=== PATIENT | female | born 1995 | race Caucasian/White ===

== ENCOUNTER 2021-05-20 23:09 | Emergency (ER) | payer MEDICAID ==
[~2021-05-20] VITALS: Ht 162.6 cm; Wt 49.4 kg
[2021-05-21 00:08] VITALS: BP 128/67
[2021-05-21 01:58] LABS: APPEARANCE,URINE SL CLOUDY (CLEAR); BILIRUBIN,URINE NEGATIVE (NEGATIVE); BLOOD, URINE NEGATIVE (NEGATIVE); COLOR,URINE YELLOW (YELLOW); LEUKOCYTE ESTERASE ,URINE 1+ (NEGATIVE); NITRITE, URINE NEGATIVE (NEGATIVE); UGLUCOSE NEGATIVE (NEGATIVE)
[2021-05-21 02:11] LABS: RBC,URINE 0-5 /HPF (0-5)
--- NOTE | 2021-05-21 02:29 | NUR ---
ACCOMPANIED DR. TRAYLOR FOR PELVIC EXAM. PT'S AT BEDSIDE. SWABS DONE AND SAMPLE SENT TO LAB. PT TOLERATED PROCEDURE WELL.
[2021-05-21] MEDS ORDERED: cefTRIAXone 500 MG in LIDOCAINE MPF 1% 1 ML IM ONE (02:30)
[2021-05-21] MEDS ORDERED: AZITHROMYCIN 250 MG TAB PO ONE (02:30)
[2021-05-21] MEDS ORDERED: cefTRIAXone 500 MG VIAL ONE (02:38)
[2021-05-21] MEDS ORDERED: LIDOCAINE MPF 1% 5 ML ONE (02:39)
[2021-05-21] MEDS ORDERED: GYNLOTC VG ×2 (02:47→02:48)
[2021-05-21] MEDS ORDERED: CEPH-588 PO ×2 (02:48)
[2021-05-21] MEDS ORDERED: PNV91TAB8 PO (02:50)
[2021-05-21 03:27] VITALS: BP 123/62
--- NOTE | 2021-05-21 03:29 | NUR ---
Patient discharged with v/s stable. Written and verbal after care instructions given and explained. Patient alert, oriented and verbalized understanding of instructions. Ambulatory with steady gait. All questions addressed prior to discharge. ID band removed. Patient advised to follow up with PMD. Rx of CEPHALEXIN, CLOTRIMAZOLE, TABLES given. Patient educated on indication of medication including possible reaction and side effects. Opportunity to ask questions provided and answered. PT states she would come back to ER for her STD test results. Dr. Arellano have educated pt risks of not taking Azithromycin.
== END 2021-05-21 03:27 | disposition home or self-care (01) ==
LOC: MED 23:09
DX: O23.592 Infection of other part of genital tract in pregnancy, second trimester (principal); Z11.3 Encounter for screening for infections with a predominantly sexual mode of transmission; Z3A.27 27 weeks gestation of pregnancy
CPT/HCPCS: 36415; 81001; 81025; 86702; 86703; 87086; 87210; 87491; 96372; 99284; J0696; J2001

== ENCOUNTER 2023-03-10 00:30 | Emergency (ER) | payer MEDICAID ==
[~2023-03-10] VITALS: Ht 165.1 cm; Wt 44.9 kg
[~2023-03-10 00:30] MED LIST: CEPH-588 PO; GYNLOTC VG; PNV91TAB8 PO
[2023-03-10 01:03] VITALS: BP 101/69; PULSE 68; RESP 16; TEMP 97.9; O2SAT 100
[2023-03-10 02:03] VITALS: TEMP 97.9
[2023-03-10 02:09] LABS: APPEARANCE,URINE CLEAR (CLEAR); BILIRUBIN,URINE NEGATIVE (NEGATIVE); BLOOD, URINE 2+ (NEGATIVE); COLOR,URINE YELLOW (YELLOW); LEUKOCYTE ESTERASE ,URINE NEGATIVE (NEGATIVE); NITRITE, URINE NEGATIVE (NEGATIVE); PROTEIN,URINE NEGATIVE (NEGATIVE); UGLUCOSE NEGATIVE (NEGATIVE); UROBILINOGEN,URINE 0.2 EU/dL (0.2 - 1)
[2023-03-10 02:18] LABS: BACTERIA,URINE 1+ /HPF (None Seen); MUCUS,URINE 1+ /LPF (None Seen); RBC,URINE 0-5 /HPF (0-5); SQUAMOUS EPITHELIAL CELL,UR 50-80 /LPF (0-3 (FEW)); TRICHOMONAS,URINE None Seen /HPF (None Seen); WBC,URINE 0-5 /HPF (0-5); YEAST,URINE None Seen /HPF (None Seen)
[2023-03-10 02:18] LABS: BASOPHILS % (AUTO) 0.9 % (0.0-2.0); EOSINOPHILS # (AUTO) 0.1 K/uL (0-0.4); HEMATOCRIT 35.7 % (36-48); HEMOGLOBIN 12.1 g/dL (12.0-16.0); LYMPHOCYTES # (AUTO) 2.2 K/uL (2.5-16.5); LYMPHOCYTES % (AUTO) 41.5 % (20.5-51.1); MEAN CORPUSCULAR HEMOGLOBIN 31 pg (27-31); MEAN CORPUSCULAR HGB CONC 34 g/dL (33-37); MEAN CORPUSCULAR VOLUME 90.3 fL (80-94); MONOCYTES # (AUTO) 0.3 K/uL (0.8-1.0); MONOCYTES % (AUTO) 6.4 % (1.7-9.3); NEUTROPHILS # (AUTO) 2.5 K/uL (1.8-7.7); NEUTROPHILS % (AUTO) 49.2 % (42.2-75.2); PLATELET COUNT (AUTO) 194 K/uL (140-450); RED BLOOD CELL COUNT(AUTO) 3.95 MIL/uL (4.20-5.40); RED CELL DISTRIBUTION WIDTH 13.2 % (11.6-13.7); WHITE BLOOD COUNT (AUTO) 5.2 K/uL (4.8-10.8)
[2023-03-10 02:21] VITALS: O2SAT 99
[2023-03-10 02:33] LABS: ANION GAP 9.2 (8-16); CALCIUM 8.8 mg/dL (8.5-10.1); CARBON DIOXIDE 30.4 mmol/L (21-32); CREATININE 0.7 mg/dL (0.6-1.3); POTASSIUM 3.6 mmol/L (3.5-5.1)
[2023-03-10 02:39] LABS: ALBUMIN 3.2 g/dL (3.4-5.0); BILIRUBIN,DIRECT 0.1 mg/dL (0.0-0.3); TOTAL BILIRUBIN 0.9 mg/dL (0.0-1.0); TOTAL PROTEIN, SERUM 7.5 g/dL (6.4-8.2)
[2023-03-10 02:48] VITALS: BP 118/47
[2023-03-10] MEDS ORDERED: FAMO-92 PO (05:53)
[2023-03-10 05:57] VITALS: PULSE 62; RESP 14; O2SAT 99
== END 2023-03-10 05:57 | disposition home or self-care (01) ==
LOC: MED 00:30
DX: K29.70 Gastritis, unspecified, without bleeding (principal); Z79.899 Other long term (current) drug therapy
CPT/HCPCS: 36415; 76705; 80048; 80076; 81001; 82150; 83690; 85025; 99285